=== PATIENT | male | born 1925 | race Caucasian/White ===

== ENCOUNTER 2017-04-30 12:51 | Inpatient (IN) | payer OTHER, BC ==
[~2017-04-30] VITALS: Ht 180.3 cm; Wt 80.8 kg
[~2017-04-30 12:51] MED LIST: ADVIL200 MG PO; ARICEPT10 MG PO; ASPIR 8181 M1 PO; ASPIR-LOW81 MG PO; ATIVAN0.5 MG PO; BIOFREEZE TP; COREG CR40 MG PO; CRESTOR10 MG PO; CRESTOR5 MG PO; CYANOCOBALAM1000 MCG PO; DEPAKOTE250 MG PO; FLONASE16 G1 BOTH NARES; FREEZE IT RE113.4 GM TP; IBUPROFEN200 M1 PO; LO-DOSE ASPIRIN81 M1 PO; MEDROL4 MG PO; MOTRIN IB200 MG PO; PRINIVIL10 MG PO; TRAMADOL HCL50 MG PO; TYLENOL EXTRA500 MG PO; ULTRAM50 MG PO; VENTOLIN HFA18 GM IH; VITAMIN B12 PO; ZESTRIL10 MG PO
[2017-04-30 14:03] LABS: BASOPHIL COUNT 0.1 K/uL (0-0.1); EOSINOPHIL (%) 6.8 % (0-5); EOSINOPHIL COUNT 0.7 K/uL (0-0.3); HEMATOCRIT 38.3 % (38.0-50.0); IMMATURE GRANULOCYTE (%) 2.2 % (0.0-0.7); IMMATURE GRANULOCYTE COUNT 0.2 K/uL; INSTRUMENT ABS NEUTROPHIL CT 5.3 K/uL; MCH 32.9 PG (29.0-34.0); MCHC 32.9 G/DL (30.0-36.0); MEAN PLAT.VOLUME 10.7 uM^3 (9.0-12.4); MONOCYTE (%) 12.7 % (3-12); MONOCYTE COUNT 1.4 K/uL (0-0.8); NEUTROPHIL (%) 49.5 % (45-76); NEUTROPHIL COUNT 5.3 K/uL (1.8-6.4); PLATELET COUNT 142 K/uL (156-360); RBC DIS.WIDTH-CV 13.8 % (11.8-14.6); RBC DIS.WIDTH-SD 50.5 % (39-53); RED BLOOD COUNT 3.83 M/uL (4.00-5.50); WHITE BLOOD COUNT 10.8 K/uL (4.1-10.2)
[2017-04-30 14:14] LABS: CHLORIDE 104 mEq/L (99-109); POTASSIUM 4.9 mEq/L (3.7-5.4); SODIUM 136 mEq/L (136-147)
[2017-04-30 14:16] LABS: GLUCOSE 103 mg/dL (70-99)
[2017-04-30 14:18] LABS: ANION GAP 11 MEQ/L (2-14); TOTAL BILIRUBIN 0.5 mg/dL (0.0-1.0)
[2017-04-30 14:20] LABS: ALKALINE PHOSPHATASE 67 IU/L (3-129); GFR ESTIMATE (CALCULATED) 51 mL/min/
[2017-04-30 14:21] LABS: UREA NITROGEN (BUN) 25 mg/dL (9-23)
[2017-04-30 16:17] LABS: ADD MIUA? YES; BILIRUBIN NEGATIVE; BLOOD NEGATIVE; COLOR YELLOW ((YELLOW)); GLUCOSE (STRIP) NEGATIVE; KETONES 5; LEUKOCYTES NEGATIVE; NITRITE NEGATIVE; PROTEIN (STRIP) 30; SPECIFIC GRAVITY 1.017 (1.000-1.030)
[2017-04-30 16:25] LABS: BACTERIA 1+ /HPF; CASTS NONE SEEN /LPF; CRYSTALS NONE SEEN; EPITHELIAL CELLS RARE /HPF; MUCUS RARE /LPF; RED BLOOD CELLS NONE SEEN /HPF (0-5); WHITE BLOOD CELLS RARE /HPF (0-5)
[2017-04-30 16:30] LABS: UCUL ADDED? YES
[2017-04-30] MEDS ORDERED: LO-DOSE ASPIRIN81 M1 PO (18:37)
[2017-04-30] MEDS ORDERED: FLUOXETINE HCL40 MG PO (18:38)
[2017-04-30] MEDS ORDERED: FUROSEMIDE20 MG PO (18:38)
[2017-04-30] MEDS ORDERED: FLOMAX0.4 MG PO (18:39)
[2017-04-30] MEDS ORDERED: SALINE NOSE SPR45 M1 BOTH NARES (18:40)
[2017-04-30] MEDS ORDERED: NAMENDA10 MG PO (18:40)
[2017-04-30] MEDS ORDERED: DEPAKOTE250 MG PO (18:41)
[2017-04-30] MEDS ORDERED: BIOFREEZE GEL TP (18:42)
[2017-04-30 21:25] VITALS: BP 131/73
[2017-04-30 21:55] LABS: INFLUENZA A VIRAL ANTIGEN NEGATIVE; INFLUENZA B VIRAL ANTIGEN NEGATIVE
[2017-05-01 04:01] VITALS: BP 126/79
[2017-05-01 06:34] LABS: BASOPHIL COUNT 0.1 K/uL (0-0.1); EOSINOPHIL (%) 7.8 % (0-5); EOSINOPHIL COUNT 0.9 K/uL (0-0.3); IMMATURE GRANULOCYTE (%) 2.5 % (0.0-0.7); IMMATURE GRANULOCYTE COUNT 0.3 K/uL; INSTRUMENT ABS NEUTROPHIL CT 5.4 K/uL; LYMPHOCYTE COUNT 2.9 K/uL (1.0-2.8); MCH 32.7 PG (29.0-34.0); MCHC 32.9 G/DL (30.0-36.0); MCV 99.5 FL (86-99); MEAN PLAT.VOLUME 9.7 uM^3 (9.0-12.4); MONOCYTE (%) 12.8 % (3-12); MONOCYTE COUNT 1.4 K/uL (0-0.8); NEUTROPHIL (%) 49.7 % (45-76); NEUTROPHIL COUNT 5.4 K/uL (1.8-6.4); PLATELET COUNT 163 K/uL (156-360); RBC DIS.WIDTH-CV 13.6 % (11.8-14.6); RBC DIS.WIDTH-SD 50.1 % (39-53); RED BLOOD COUNT 3.82 M/uL (4.00-5.50); WHITE BLOOD COUNT 10.9 K/uL (4.1-10.2)
[2017-05-01 06:54] LABS: ANION GAP 9 MEQ/L (2-14); CHLORIDE 106 MEQ/L (99-109); GFR ESTIMATE (CALCULATED) > 59 mL/min/; GLUCOSE 91 mg/dL (70-99); POTASSIUM 4.3 MEQ/L (3.7-5.4); SAMPLE HEMOLYSIS CHECK 0; SAMPLE ICTERIC CHECK 0; SAMPLE LIPEMIA CHECK 0; SODIUM 140 MEQ/L (136-147); UREA NITROGEN (BUN) 21 mg/dL (9-23)
[2017-05-01 07:51] LABS: INTERNAL CONTROL VALID? YES
[2017-05-01 08:26] VITALS: BP 127/87
[2017-05-01 12:13] VITALS: BP 97/58
[2017-05-01 16:11] VITALS: BP 119/80
[2017-05-01 19:30] VITALS: BP 114/65
[2017-05-01 23:50] VITALS: BP 121/69
[2017-05-02] VITALS (7 sets, daily range): BP systolic 106–128; BP diastolic 58–75
[2017-05-02 06:01] LABS: BASOPHIL COUNT 0.1 K/uL (0-0.1); EOSINOPHIL (%) 7.7 % (0-5); EOSINOPHIL COUNT 0.9 K/uL (0-0.3); HEMATOCRIT 38.5 % (38.0-50.0); IMMATURE GRANULOCYTE (%) 2.6 % (0.0-0.7); IMMATURE GRANULOCYTE COUNT 0.3 K/uL; INSTRUMENT ABS NEUTROPHIL CT 5.2 K/uL; LYMPHOCYTE COUNT 4.1 K/uL (1.0-2.8); MCH 33.1 PG (29.0-34.0); MCHC 32.7 G/DL (30.0-36.0); MEAN PLAT.VOLUME 9.6 uM^3 (9.0-12.4); MONOCYTE (%) 12.4 % (3-12); MONOCYTE COUNT 1.5 K/uL (0-0.8); NEUTROPHIL (%) 42.6 % (45-76); NEUTROPHIL COUNT 5.2 K/uL (1.8-6.4); PLATELET COUNT 170 K/uL (156-360); RBC DIS.WIDTH-CV 13.6 % (11.8-14.6); RBC DIS.WIDTH-SD 51.6 % (39-53); RED BLOOD COUNT 3.81 M/uL (4.00-5.50); WHITE BLOOD COUNT 12.1 K/uL (4.1-10.2)
[2017-05-02 06:25] LABS: ANION GAP 10 MEQ/L (2-14); CHLORIDE 104 MEQ/L (99-109); GFR ESTIMATE (CALCULATED) > 59 mL/min/; GLUCOSE 91 mg/dL (70-99); POTASSIUM 4.4 MEQ/L (3.7-5.4); SAMPLE HEMOLYSIS CHECK 0; SAMPLE ICTERIC CHECK 0; SAMPLE LIPEMIA CHECK 0; SODIUM 138 MEQ/L (136-147); UREA NITROGEN (BUN) 19 mg/dL (9-23)
[2017-05-03 03:24] VITALS: BP 118/66
[2017-05-03 06:07] LABS: BASOPHIL COUNT 0.1 K/uL (0-0.1); EOSINOPHIL (%) 7.8 % (0-5); HEMATOCRIT 38.2 % (38.0-50.0); IMMATURE GRANULOCYTE (%) 2.6 % (0.0-0.7); IMMATURE GRANULOCYTE COUNT 0.3 K/uL; INSTRUMENT ABS NEUTROPHIL CT 4.9 K/uL; LYMPHOCYTE COUNT 4.3 K/uL (1.0-2.8); MCH 32.5 PG (29.0-34.0); MCHC 32.2 G/DL (30.0-36.0); MCV 100.8 FL (86-99); MEAN PLAT.VOLUME 9.7 uM^3 (9.0-12.4); MONOCYTE COUNT 1.6 K/uL (0-0.8); NEUTROPHIL (%) 40.7 % (45-76); NEUTROPHIL COUNT 4.9 K/uL (1.8-6.4); PLATELET COUNT 173 K/uL (156-360); RBC DIS.WIDTH-CV 13.7 % (11.8-14.6); RBC DIS.WIDTH-SD 51.5 % (39-53); RED BLOOD COUNT 3.79 M/uL (4.00-5.50); WHITE BLOOD COUNT 12.1 K/uL (4.1-10.2)
[2017-05-03 06:46] LABS: ANION GAP 7 MEQ/L (2-14); CHLORIDE 106 MEQ/L (99-109); GFR ESTIMATE (CALCULATED) > 59 mL/min/; GLUCOSE 90 mg/dL (70-99); POTASSIUM 4.2 MEQ/L (3.7-5.4); SAMPLE HEMOLYSIS CHECK 0; SAMPLE ICTERIC CHECK 0; SAMPLE LIPEMIA CHECK 0; SODIUM 138 MEQ/L (136-147); UREA NITROGEN (BUN) 23 mg/dL (9-23)
[2017-05-03 07:27] VITALS: BP 128/74
[2017-05-03 15:19] VITALS: BP 103/59
[2017-05-03 23:44] VITALS: BP 148/88
[2017-05-04 07:55] VITALS: BP 126/80
[2017-05-04] MEDS ORDERED: CEFTIN500 MG PO (11:55)
[2017-05-04] MEDS ORDERED: DUONEB 2.5-0.5 M3 ML AEROSOL (11:55)
== END 2017-05-04 15:43 | DRG 871 ==
LOC: EME 12:51 → EDOF 19:06 → 5SOUTH 19:06 → ENRESERV 19:12 → 5SOUTH 21:04
PROVIDERS: Emergency Medicine; Hospitalist; Internal Medicine
DX: A41.9 Sepsis, unspecified organism (principal); J18.9 Pneumonia, unspecified organism; N17.9 Acute kidney failure, unspecified; R09.02 Hypoxemia; E86.0 Dehydration; I47.1 Supraventricular tachycardia; J98.11 Atelectasis; G47.33 Obstructive sleep apnea (adult) (pediatric); M25.511 Pain in right shoulder; M62.81 Muscle weakness (generalized); I25.10 Atherosclerotic heart disease of native coronary artery without angina pectoris; E78.5 Hyperlipidemia, unspecified; F03.90 Unspecified dementia, unspecified severity, without behavioral disturbance, psychotic disturbance, mood disturbance, and anxiety; I10 Essential (primary) hypertension; N40.0 Benign prostatic hyperplasia without lower urinary tract symptoms; H91.90 Unspecified hearing loss, unspecified ear; Z86.73 Personal history of transient ischemic attack (TIA), and cerebral infarction without residual deficits; Z95.1 Presence of aortocoronary bypass graft; Z87.891 Personal history of nicotine dependence
CPT/HCPCS: 70450; 71010; 73030; 80048; 80053; 81003; 83605; 85025; 87040; 87070; 87086; 87205; 87449; 87502; 93005; 99202; 99281; 99285; J0456; J0696; J1644; J1940; J7030; J7050

== ENCOUNTER 2017-07-22 14:50 | Inpatient (IN) | payer OTHER, BC ==
[~2017-07-22] VITALS: Ht 180.3 cm; Wt 87.5 kg
[~2017-07-22 14:50] MED LIST changes: +BIOFREEZE GEL TP; +CEFTIN500 MG PO; +DUONEB 2.5-0.5 M3 ML AEROSOL; +FLOMAX0.4 MG PO; +FLUOXETINE HCL40 MG PO; +FUROSEMIDE20 MG PO; +NAMENDA10 MG PO; +SALINE NOSE SPR45 M1 BOTH NARES
[2017-07-22 15:24] LABS: HEMATOCRIT 38.4 % (38.0-50.0); MCH 32.7 PG (29.0-34.0); MCHC 32.3 G/DL (30.0-36.0); MCV 101.3 FL (86-99); MEAN PLAT.VOLUME 9.8 uM^3 (9.0-12.4); PLATELET COUNT 198 K/uL (156-360); RBC DIS.WIDTH-CV 13.7 % (11.8-14.6); RBC DIS.WIDTH-SD 51.8 % (39-53); RED BLOOD COUNT 3.79 M/uL (4.00-5.50)
[2017-07-22 15:32] LABS: CHLORIDE 107 mEq/L (99-109); POTASSIUM 5.1 mEq/L (3.7-5.4); SODIUM 140 mEq/L (136-147)
[2017-07-22 15:33] LABS: GLUCOSE 126 mg/dL (70-99)
[2017-07-22 15:35] LABS: ANION GAP 10 MEQ/L (2-14)
[2017-07-22 15:37] LABS: GFR ESTIMATE (CALCULATED) 55 mL/min/
[2017-07-22 15:38] LABS: UREA NITROGEN (BUN) 22 mg/dL (9-23)
[2017-07-22 15:45] LABS: TROP-I INTERPRETATION NEGATIVE; TROPONIN-I < 0.01 ng/mL (0.0-0.30)
[2017-07-22] MEDS ORDERED: ZITHROMAX Z-PA250 MG PO (18:04)
[2017-07-22] MEDS ORDERED: THROAT DROPS2.8 MG MM (19:41)
[2017-07-22] MEDS ORDERED: LANTISEPTIC OI113 GM TP (20:51)
[2017-07-22] MEDS ORDERED: BIOFREEZE TP (20:54)
[2017-07-22] MEDS ORDERED: ATIVAN0.5 MG PO (20:57)
[2017-07-22] MEDS ORDERED: DELTASONE20 M1 PO (20:58)
[2017-07-22] MEDS ORDERED: LASIX40 MG PO (20:59)
[2017-07-22] MEDS ORDERED: LASIX20 MG PO (21:00)
[2017-07-22] MEDS ORDERED: AUGMENTIN875 MG PO (21:03)
[2017-07-22 23:06] VITALS: BP 131/60
[2017-07-23 08:24] VITALS: BP 128/73
[2017-07-23 15:54] VITALS: BP 126/74
[2017-07-24 01:03] VITALS: BP 133/91
[2017-07-24 08:28] VITALS: BP 110/65
[2017-07-24 16:33] VITALS: BP 116/65
[2017-07-24 22:48] VITALS: BP 157/78
[2017-07-24 23:46] VITALS: BP 118/69
[2017-07-25 06:50] VITALS: BP 129/81
[2017-07-25 15:10] VITALS: BP 110/58
[2017-07-25 23:34] VITALS: BP 101/64
[2017-07-26 06:03] LABS: HEMATOCRIT 37.7 % (38.0-50.0); MCH 32.2 PG (29.0-34.0); MCHC 32.6 G/DL (30.0-36.0); MCV 98.7 FL (86-99); MEAN PLAT.VOLUME 9.7 uM^3 (9.0-12.4); PLATELET COUNT 215 K/uL (156-360); RBC DIS.WIDTH-CV 13.2 % (11.8-14.6); RBC DIS.WIDTH-SD 47.6 % (39-53); RED BLOOD COUNT 3.82 M/uL (4.00-5.50); WHITE BLOOD COUNT 12.3 K/uL (4.1-10.2)
[2017-07-26 06:57] LABS: ANION GAP 10 MEQ/L (2-14); CHLORIDE 103 MEQ/L (99-109); GFR ESTIMATE (CALCULATED) > 59 mL/min/; GLUCOSE 96 mg/dL (70-99); POTASSIUM 3.7 MEQ/L (3.7-5.4); SAMPLE HEMOLYSIS CHECK 0; SAMPLE ICTERIC CHECK 0; SAMPLE LIPEMIA CHECK 0; SODIUM 139 MEQ/L (136-147); UREA NITROGEN (BUN) 11 mg/dL (9-23)
[2017-07-26 07:25] VITALS: BP 147/67
[2017-07-26 15:33] VITALS: BP 116/61
[2017-07-27] VITALS: BP 131/71
[2017-07-27 08:00] VITALS: BP 139/75
[2017-07-27] MEDS ORDERED: MYCOSTATIN 100,60 ML PO (11:26)
[2017-07-27] MEDS ORDERED: DIVALPROEX SOD125 MG PO (11:26)
== END 2017-07-27 15:45 | disposition home or self-care (01) | DRG 391 ==
LOC: EME 14:50 → 5EAST 21:12 → EDOF 21:12 → ENRESERV 21:30 → 5EAST 22:52 → ENPENDDIS 07-27 → EDPENDDISTM 07-27 15:30 → 5EAST 07-27 15:45
PROVIDERS: Emergency Medicine; Family Medicine
DX: R13.10 Dysphagia, unspecified (principal); J18.9 Pneumonia, unspecified organism; J44.0 Chronic obstructive pulmonary disease with (acute) lower respiratory infection; I10 Essential (primary) hypertension; E78.5 Hyperlipidemia, unspecified; N40.0 Benign prostatic hyperplasia without lower urinary tract symptoms; I25.10 Atherosclerotic heart disease of native coronary artery without angina pectoris; I65.23 Occlusion and stenosis of bilateral carotid arteries; S30.1XXA Contusion of abdominal wall, initial encounter; S30.0XXA Contusion of lower back and pelvis, initial encounter; F03.90 Unspecified dementia, unspecified severity, without behavioral disturbance, psychotic disturbance, mood disturbance, and anxiety; B37.0 Candidal stomatitis; G47.33 Obstructive sleep apnea (adult) (pediatric); J84.10 Pulmonary fibrosis, unspecified; Z86.73 Personal history of transient ischemic attack (TIA), and cerebral infarction without residual deficits; Z79.82 Long term (current) use of aspirin; Z87.891 Personal history of nicotine dependence; Z90.49 Acquired absence of other specified parts of digestive tract; Z91.81 History of falling; Z95.1 Presence of aortocoronary bypass graft; J90 Pleural effusion, not elsewhere classified; G40.909 Epilepsy, unspecified, not intractable, without status epilepticus
CPT/HCPCS: 36415; 70450; 71020; 71250; 74220; 80048; 84484; 85025; 85027; 85610; 85730; 87081 GA; 87651 90; 92610 GN; 93005; 93880; 94799; 99202; 99281; 99285; J0692; J7050